=== PATIENT | male | born 1995 | race Caucasian/White ===

== ENCOUNTER 2017-08-27 14:30 | Emergency (ER) | payer OTHER ==
[~2017-08-27] VITALS: Ht 182.9 cm; Wt 67.6 kg
[2017-08-27 14:34] VITALS: Ht 182.9 cm; Wt 67.6 kg
[2017-08-27] MEDS ORDERED: ALBUT/IPRATROP 3MG/0.5MG NEB 3 ML VIAL INH STA (14:57)
[2017-08-27] MEDS ORDERED: SODIUM CHLORIDE 0.9% 1000ML 1,000 ML IV STA (14:57)
[2017-08-27] MEDS ORDERED: KETOROLAC TROMETHAMINE 30 MG/ML VIAL IV STA (14:57)
[2017-08-27 15:11] VITALS: O2SAT 97
[2017-08-27 15:11] LABS: BASO % 0.3 %; BASO ABS # 0.02 K/uL (0-0.2); EOS % 0.7 %; EOS ABS # 0.04 K/uL (0-0.5); HEMATOCRIT 48.1 % (42-52); IG# 0.01 K/uL (0.00-0.02); LYMPH % 17.8 %; LYMPH ABS # 1.06 K/uL (1.2-3.4); MEAN CELL VOLUME 85.3 fL (80-100); MEAN CORPUSCULAR HEMOGLOBIN 30.1 pg (25-34); MEAN CORPUSCULAR HGB CONC 35.3 g/dl (32-36); MEAN PLATELET VOLUME 9.1 fL (7.4-10.4); MONO % 8.7 %; MONO ABS # 0.52 K/uL (0.11-0.59); NEUT % 72.3 %; PLATELET COUNT 175 K/uL (130-400); RED CELL DISTRIBUTION WIDTH CV 12.2 % (11.5-14.5); RED CELL DISTRIBUTION WIDTH SD 38.1 fL (36.4-46.3); WHITE BLOOD COUNT 5.95 K/uL (4.8-10.8)
--- NOTE | 2017-08-27 15:16 | EMERGENCY ROOM VISIT NOTE ---
ED Visit Note First contact with patient: 14:49 CHIEF COMPLAINT: Cough, shortness of breath, chest pain HISTORY OF PRESENTING ILLNESS: This is a 22-year-old male who presents to the emergency department by private vehicle with concern for shortness of breath and chest pain that began last night. The patient states that he has been having a bad cough for the past 5 days, states it has been nonproductive, and he denies any hemoptysis. Patient states last night he began to develop chest pain in the middle and left side of his chest that has been constant, feels like a pressure and occasionally sharp, worse with taking a deep breath, does not radiate, is not worse with exertion but does feel better with rest, rates as 6/10. He has been feeling short of breath as well, stating he feels like he cannot get enough air. He denies any dizziness or syncope. He denies any recent immobilization or long trips, denies any leg pain or swelling, or history of blood clots. This morning he felt hot and had chills, did not take his temperature but feels that he had a fever which is new today. He took Extra Strength Tylenol this morning, which did help somewhat with the chills, but did not help the chest pain. He denies any symptoms of headache, vision changes, neck pain or stiffness, back pain, abdominal pain, nausea or vomiting, diarrhea, urinary symptoms, or unusual rash. He did not have a flu shot. REVIEW OF SYSTEMS: A complete 10 point review of systems was reviewed with the patient with pertinent positives and negatives as per history of present illness. All else were negative. PAST MEDICAL HISTORY: No significant past medical or surgical history. Up-to- date on immunizations. FAMILY HISTORY: No known family history of cardiac disease at a young age or blood clots. SOCIAL HISTORY: Lives at home. He is a [employer] student. He denies tobacco use. ALLERGIES: No known allergies. PHYSICAL EXAM: CONSTITUTIONAL: Pleasant and cooperative. No acute distress, but obviously uncomfortable. Mildly dehydrated, but otherwise well appearing and well nourished. HEENT: Normocephalic, atraumatic. Pupils equal, round and reactive to light, EOMI. TMs normal. Pharynx normal. Tacky mucous membranes. NECK: Supple, full active range of motion without discomfort. No cervical adenopathy. RESPIRATORY: Slight rhonchi bilaterally, clear with coughing. No wheezing, crackles, or stridor. Equal expansion bilaterally. CARDIOVASCULAR: Regular rate and rhythm with no murmurs, rubs or gallops. Normal peripheral perfusion. No edema. GASTROINTESTINAL: Soft, nontender, nondistended. No palpable masses or HSM. Bowel sounds present in all quadrants. MUSCULOSKELETAL: Full range of motion of all joints without discomfort. No calf tenderness or swelling noted. INTEGUMENTARY: No rash or other significant dermatologic conditions noted. NEUROLOGIC: Alert and oriented X 4 with normal affect. Normal strength and sensation in all 4 extremities. No focal neurologic deficits noted. Normal speech. Normal gait observed. ED COURSE AND MEDICAL DECISION MAKING: CC: Patient presenting with complaint of shortness of breath, chest pain, cough DIFFERENTIAL DIAGNOSIS: Includes, but not limited to viral URI, bronchitis, pneumonia, acute coronary syndrome, pulmonary embolism, pneumothorax, pericarditis, musculoskeletal pain, GERD, costochondritis, influenza, among others. INTERPRETATION OF LABS: No leukocytosis, no anemia, no significant electrolyte abnormalities, normal renal function, normal liver enzymes. Negative troponin. Negative d-dimer. UA negative. IMAGIN view chest x-ray reviewed by myself and radiology and shows no acute abnormalities by my interpretation. EKG: Shows normal sinus rhythm with sinus arrhythmia with rate of 88 bpm, no acute ischemic changes noted by my interpretation. No previous EKG available for comparison. MEDICATION RECONCILIATION: I attest that I have personally reviewed the patient 's current medication list. INITIAL VITAL SIGNS REVIEW: I reviewed the patient's initial vital signs and interpret them as follows: T: Afebrile; BP: Normotensive; HR: Tachycardic; RR : Within normal limits; Pulse Ox: Within normal limits on room air. Blood pressure screening: The patient was found to have normal blood pressure on screening and does not require follow-up for repeat blood pressure check. SUMMARY: Patient was evaluated at bedside, history and physical exam performed. Patient is alert and oriented, no acute distress, but does appear uncomfortable , resting calmly in the stretcher. Patient is in no obvious respiratory distress, not tachypneic, not hypoxic, no labored breathing or accessory muscle use noted. Lungs are mostly clear with a few scattered rhonchi which clear with coughing. Patient is low risk for PE utilizing Wells criteria, but he does report pleuritic chest pain is noted to be mildly tachycardic, therefore a d-dimer was ordered. EKG reviewed at bedside, normal sinus rhythm. Orders were placed at bedside for labs, IV fluids for hydration, IV Toradol for pain, DuoNeb for shortness of breath, chest x-ray to evaluate for cardio pulmonary disease. Patient discussed with Dr. Wilburn, who agrees with my assessment and plan. Labs and imaging reviewed as above, unremarkable. Negative troponin and negative d-dimer. Patient reassessed multiple times throughout ED stay, patient states he is feeling much better after IV fluids and states that his shortness of breath is resolved with the DuoNeb. Patient states that his chest pain is resolved with Toradol. Patient was provided with an albuterol inhaler and spacer and educated regarding its use for continued management of his cough and shortness of breath Patient was updated on all results and plan for discharge, he was encouraged to follow closely with his PCP or [facility]. Patient was also given strict return precautions should his symptoms worsen, he verbalized understanding. Patient was discharged home in stable condition and ambulatory. Current/Historical Medications No Active Prescriptions or Reported Meds Allergies Coded Allergies: No Known Allergies (Unverified , 08/27/17) Vital Signs Date Time Temp Pulse Resp B/P (MAP) Pulse Ox O2 Delivery O2 Flow Rate FiO2 08/27/17 16:35 36.9 96 17 117/72 98 08/27/17 15:32 92 115/69 99 Room Air 08/27/17 15:13 76 08/27/17 15:11 97 Room Air 08/27/17 14:54 97 Room Air 08/27/17 14:34 36.8 101 18 125/79 97 Room Air Laboratory Results 08/27/17 14:50 Red Blood Count 5.64, Mean Corpuscular Volume 85.3, Mean Corpuscular Hemoglobin 30.1, Mean Corpuscular Hemoglobin Concent 35.3, Mean Platelet Volume 9.1, Neutrophils (%) (Auto) 72.3, Lymphocytes (%) (Auto) 17.8, Monocytes (%) (Auto) 8.7, Eosinophils (%) (Auto) 0.7, Basophils (%) (Auto) 0.3, Neutrophils # (Auto) 4.30, Lymphocytes # (Auto) 1.06, Monocytes # (Auto) 0.52, Eosinophils # (Auto) 0.04, Basophils # (Auto) 0.02 08/27/17 14:50 Test 08/27/17 14:50 08/27/17 15:26 08/27/17 15:30 08/27/17 15:50 White Blood Count 5.95 K/uL (4.8-10.8) Red Blood Count 5.64 M/uL (4.7-6.1) Hemoglobin 17.0 g/dL (14.0-18.0) Hematocrit 48.1 % (42-52) Mean Corpuscular Volume 85.3 fL (80-100) Mean Corpuscular Hemoglobin 30.1 pg (25-34) Mean Corpuscular Hemoglobin Concent 35.3 g/dl (32-36) Platelet Count 175 K/uL (130-400) Mean Platelet Volume 9.1 fL (7.4-10.4) Neutrophils (%) (Auto) 72.3 % Lymphocytes (%) (Auto) 17.8 % Monocytes (%) (Auto) 8.7 % Eosinophils (%) (Auto) 0.7 % Basophils (%) (Auto) 0.3 % Neutrophils # (Auto) 4.30 K/uL (1.4-6.5) Lymphocytes # (Auto) 1.06 K/uL (1.2-3.4) Monocytes # (Auto) 0.52 K/uL (0.11-0.59) Eosinophils # (Auto) 0.04 K/uL (0-0.5) Basophils # (Auto) 0.02 K/uL (0-0.2) RDW Standard Deviation 38.1 fL (36.4-46.3) RDW Coefficient of Variation 12.2 % (11.5-14.5) Immature Granulocyte % (Auto) 0.2 % Immature Granulocyte # (Auto) 0.01 K/uL (0.00-0.02) Anion Gap 7.0 mmol/L (3-11) Est Creatinine Clear Calc Drug Dose 98.9 ml/min Estimated GFR () 107.1 Estimated GFR (Non- 92.4 BUN/Creatinine Ratio 7.3 (10-20) Calcium Level 9.1 mg/dl (8.5-10.1) Total Bilirubin 0.6 mg/dl (0.2-1) Aspartate Amino Transf (AST/SGOT) 24 U/L (15-37) Alanine Aminotransferase (ALT/SGPT) 62 U/L (12-78) Alkaline Phosphatase 94 U/L (45-117) Troponin I < 0.015 ng/ml (0-0.045) Total Protein 8.9 gm/dl (6.4-8.2) Albumin 4.4 gm/dl (3.4-5.0) Globulin 4.5 gm/dl (2.5-4.0) Albumin/Globulin Ratio 1.0 (0.9-2) Bedside D-Dimer 132 ng/mlFEU (0-450) Influenza Type A Antigen Neg for Influ A (NEG) Influenza Type B Antigen Neg for Influ B (NEG) Urine Color YELLOW Urine Appearance CLEAR (CLEAR) Urine pH 8.0 (4.5-7.5) Urine Specific [place] 1.020 (1.000-1.030) Urine Protein NEG (NEG) Urine Glucose (UA) NEG (NEG) Urine Ketones NEG (NEG) Urine Occult Blood NEG (NEG) Urine Nitrite NEG (NEG) Urine Bilirubin NEG (NEG) Urine Urobilinogen NEG (NEG) Urine Leukocyte Esterase NEG (NEG) Medications Administered Medications (Trade) Dose Ordered Sig/Chaz Route Start Time Stop Time Status Last Admin Dose Admin Sodium Chloride 1,000 ml @ 999 mls/hr Q1H1M STAT IV 08/27/17 14:57 08/27/17 15:57 DC 08/27/17 15:11 999 MLS/HR Ketorolac Tromethamine (Toradol Inj) 15 mg NOW STAT IV 08/27/17 14:57 08/27/17 15:01 DC 08/27/17 15:11 15 MG Albuterol/ Ipratropium (Duoneb) 3 ml NOW STAT INH 08/27/17 14:57 08/27/17 15:01 DC 08/27/17 15:11 3 ML Albuterol (Ventolin Hfa Inhaler) 2 puffs NOW ONCE INH 08/27/17 16:30 08/27/17 16:31 DC 08/27/17 16:50 2 PUFFS Departure Information Impression Primary Impression: Acute bronchitis Dispostion Home / Self-Care Condition GOOD Prescriptions No Active Prescriptions or Reported Meds Referrals No Doctor, Assigned (PCP) [facility] Patient Instructions ED Bronchitis Asthmatic, ED URI Viral, [facility] Additional Instructions You have been evaluated in the emergency department for your cough and chest pain. There is no evidence of pneumonia on your chest x-ray. Your cough is most likely caused by a viral illness, which should improve in the next 7-10 days. Cough from the bronchitis may last for several weeks. Use the albuterol inhaler TWO puffs every 4 hours as needed for cough, shortness of breath, chest tightness. You should also use this before bed to help prevent coughing so that you can sleep better at night. For chest pain, you can use the following [id number] medicines (if >12 yo) : - Regular strength (325mg/tab) Tylenol (acetaminophen) 2 tabs every 4-6 hours as needed. Do not exceed 10 tablets in a 24 hour period. Avoid taking more than 3000 mg of Tylenol per day. This includes any other sources of acetaminophen you may take on a regular basis. - Regular strength (200 mg/tab) Advil (ibuprofen) 3 tabs every 6-8 hours as needed. Do not exceed a dose of 2400 mg per day. - For best results, alternate dosing of Tylenol and Advil. Apply heating pad to your chest to help with discomfort. Drink plenty of fluids to stay well hydrated. You may also try [id number] cough and cold medications as needed. Take as directed. Please follow-up with your with [facility] in the next few days to be rechecked if your symptoms are not getting any better. Please return to the emergency department if your symptoms worsen over the next 2-3 days despite treatment course outlined above. Return to the emergency department if you develop the following symptoms of: inability to swallow solids , liquids, or drool; excessive wheezing or inability to catch your breath; worsening chest pain, coughing up blood, severe dizziness or passing out; fever or pain that becomes unmanageable with [id number] medications; or any other concerns. School Instructions Return To School: 2 days Problem Qualifiers Primary Impression: Acute bronchitis Bronchitis organism: unspecified organism Qualified Codes: J20.9 - Acute bronchitis, unspecified
[2017-08-27 15:36] LABS: ALKALINE PHOSPHATASE 94 U/L (45-117); TOTAL PROTEIN 8.9 gm/dl (6.4-8.2)
[2017-08-27 15:48] LABS: ALBUMIN 4.4 gm/dl (3.4-5.0); ALT/SGPT 62 U/L (12-78); BLOOD UREA NITROGEN 8 mg/dl (7-18); CALCIUM 9.1 mg/dl (8.5-10.1); CARBON DIOXIDE 29 mmol/L (21-32); CREATININE 1.13 mg/dl (0.60-1.40); GLUCOSE 86 mg/dl (70-99)
[2017-08-27 15:49] LABS: AST/SGOT 24 U/L (15-37)
--- NOTE | 2017-08-27 15:50 | DIAGNOSTIC IMAGING REPORT ---
CHEST 2 VIEWS ROUTINE CLINICAL HISTORY: EVALUATE RESPIRATORY DISTRESS.DYSPNEA dyspnea COMPARISON STUDY: No previous studies for comparison. FINDINGS: The bones soft tissues and hemidiaphragms are normal. The cardiomediastinal silhouette is normal. The lungs are clear. The pulmonary vasculature is normal. IMPRESSION: Negative chest. The above report was generated using voice recognition software. It may contain grammatical, syntax or spelling errors. Electronically signed by: Ankur Oropeza M.D. 08/27/2017 3:48 PM Dictated Date/Time: 08/27/2017 3:48 PM
[2017-08-27 15:54] LABS: POTASSIUM 3.6 mmol/L (3.5-5.1); SODIUM 138 mmol/L (136-145)
[2017-08-27 16:07] LABS: INFLUENZA B ANTIGEN Neg for Influ B (NEG)
[2017-08-27] MEDS ORDERED: ALBUTEROL HFA 8 GM INHALER INH ONE (16:30)
[2017-08-27 16:35] VITALS: BP 117/72; PULSE 96; TEMP 36.9; O2SAT 98
== END 2017-08-27 16:45 | disposition home or self-care (01) ==
LOC: C.EDB 14:33 → C.EDC 16:45
DX: J20.9 Acute bronchitis, unspecified (principal); E86.0 Dehydration